=== PATIENT | female | born 1955 | race Caucasian/White ===

== ENCOUNTER → 2019-02-27 00:01 | Outpatient (BNVA) | payer MEDICARE, OTHER, SELFPAY | PROVIDERS: Family Provider Family Medicine; PCP Plastic Surgery; Visit Provider Podiatrist Foot & Ankle Surgery | DX: Z98.890 Other specified postprocedural states (principal); M24.675 Ankylosis, left foot; M85.872 Other specified disorders of bone density and structure, left ankle and foot | CPT/HCPCS: 73630 ==

== ENCOUNTER → 2019-03-20 16:23 | Outpatient (BNVA) | payer MEDICARE, OTHER, SELFPAY | PROVIDERS: Family Provider Family Medicine; PCP Plastic Surgery; Visit Provider Podiatrist Foot & Ankle Surgery | DX: Z98.890 Other specified postprocedural states (principal); Z48.89 Encounter for other specified surgical aftercare | CPT/HCPCS: 73630 ==

== ENCOUNTER → 2019-04-04 16:03 | Outpatient (BNVA) | payer MEDICARE, OTHER, SELFPAY | PROVIDERS: Family Provider Family Medicine; PCP Plastic Surgery; Visit Provider Urology | DX: N30.20 Other chronic cystitis without hematuria (principal); N39.41 Urge incontinence | CPT/HCPCS: 81001 ==

== ENCOUNTER → 2020-01-15 14:12 | Outpatient (BNVA) | payer MEDICARE, OTHER, SELFPAY | PROVIDERS: Family Provider Family Medicine; PCP Family Medicine; Visit Provider Nurse Practitioner Family | DX: N30.20 Other chronic cystitis without hematuria (principal); N39.41 Urge incontinence | CPT/HCPCS: 81003 ==

== ENCOUNTER → 2020-06-03 14:31 | Outpatient (BNVA) | payer MEDICARE, OTHER, SELFPAY | PROVIDERS: Family Provider Family Medicine; PCP Family Medicine; Referring Provider Family Medicine; Visit Provider Specialist | DX: M25.521 Pain in right elbow (principal) | CPT/HCPCS: 73080 ==

== ENCOUNTER → 2020-08-13 11:01 | Outpatient (BNVA) | payer MEDICARE, OTHER, SELFPAY | PROVIDERS: Family Provider Family Medicine; PCP Family Medicine; Visit Provider Urology | DX: N30.20 Other chronic cystitis without hematuria (principal); N39.41 Urge incontinence | CPT/HCPCS: 81003 ==

== ENCOUNTER → 2020-12-10 16:09 | Outpatient (BNVA) | payer MEDICARE, OTHER, SELFPAY | PROVIDERS: Family Provider Family Medicine; PCP Family Medicine; Visit Provider Nurse Practitioner Family | DX: N30.20 Other chronic cystitis without hematuria (principal); N39.41 Urge incontinence | CPT/HCPCS: 81003 ==

== ENCOUNTER → 2021-01-15 15:58 | Outpatient (BNVA) | payer MEDICARE, OTHER, SELFPAY | PROVIDERS: Family Provider Family Medicine; PCP Family Medicine; Visit Provider Nurse Practitioner Family | DX: N30.20 Other chronic cystitis without hematuria (principal); N39.41 Urge incontinence | CPT/HCPCS: 81003 ==

== ENCOUNTER 2021-01-16 14:23 | Outpatient (CLI) | payer MEDICARE, OTHER, SELFPAY ==
--- NOTE | 2021-01-16 14:29 | XR_ITS ---
WS: [id number] SCREENING DEXA SCAN Anevia CLINICAL INFORMATION: ASYMPTOMATIC MENOPAUSAL STATE COMPARISON: None. FINDINGS: The L1-L4 bone mineral density measures 0.961 g/cm2. This corresponds to a T score score of -1.8 and Z score of -0.4. Left femoral neck bone mineral density measures 0.619 g/cm2. This corresponds to a T score of -3.1 an d Z score of -1.9. Right femoral neck bone mineral density measures 0.677 g/cm2. This corresponds to a T score -2.6of an d Z score of -1.4. Mean femoral neck bone mineral density measures 0.648 g/cm2. This corresponds to a T score of -2.9 an d Z score of -1.7. XR/XR DEXA axial skeleton* [id number] IMPRESSION: Osteopenia lumbar spine. Osteoporosis femoral necks. Patient's FRAX calculated 10 year probability for major osteoporotic fracture i s 36.5 % and osteoporotic hip fracture is 16.0%.
== END 2021-01-16 14:24 | disposition home or self-care (01) ==
PROVIDERS: PCP Family Medicine; Visit Provider Family Medicine
DX: Z78.0 Asymptomatic menopausal state (principal); M85.88 Other specified disorders of bone density and structure, other site
CPT/HCPCS: 77080

== ENCOUNTER → 2021-05-14 14:41 | Outpatient (BNVA) | payer MEDICARE, OTHER, SELFPAY | PROVIDERS: Family Provider Family Medicine; PCP Family Medicine; Visit Provider Nurse Practitioner Family | DX: N30.20 Other chronic cystitis without hematuria (principal) | CPT/HCPCS: 81003 ==

== ENCOUNTER → 2022-02-24 14:16 | Outpatient (BNVA) | payer MEDICARE, OTHER, SELFPAY | PROVIDERS: Family Provider Family Medicine; PCP Family Medicine; Visit Provider Urology | DX: Z87.440 Personal history of urinary (tract) infections (principal); N39.41 Urge incontinence | CPT/HCPCS: 81003; 99213 ==

== ENCOUNTER → 2022-10-19 13:49 | Outpatient (BNVA) | payer MEDICARE, OTHER, SELFPAY | PROVIDERS: Family Provider Family Medicine; PCP Family Medicine; Visit Provider Dermatology | DX: L57.0 Actinic keratosis (principal); D22.5 Melanocytic nevi of trunk; L81.4 Other melanin hyperpigmentation; L57.8 Other skin changes due to chronic exposure to nonionizing radiation; L82.1 Other seborrheic keratosis | CPT/HCPCS: 17000; 17003; 99213 ==

== ENCOUNTER 2023-02-01 09:22 | Observation (INO) | payer MEDICARE, OTHER, SELFPAY ==
[2023-02-01] VITALS (24 sets, daily range): BP systolic 134–186; BP diastolic 65–93; PULSE 73–123; RESP 9–17; TEMP 36.4–36.9; O2SAT 93–99; BMI 20.7; BMI 20.6
--- NOTE | 2023-02-01 09:35 | CTR_ITS ---
PROCEDURE INFORMATION: Exam: CT Head Without Contrast Exam date and time: 02/01/2023 9:55 AM Age: 67 years old Clinical indication: Other: New onset seizures TECHNIQUE: Imaging protocol: Computed tomography of the head without contrast. Radiation optimization: All CT scans at this facility use at least one of these dose optimization techniques: automated exposure control; mA and/or kV adjustment per patient size (includes targeted exams where dose is matched to clinical indication); or iterative reconstruction. REPORTING DATA: Count of CT and Cardiac NM exams in prior 12 months: This patient has received 0 known CTs and 0 known cardiac nuclear medicine studies in the 12 months prior to the current study. COMPARISON: CT head wo con* [id number] 06/15/2016 10:06 AM RADIATION DOSE METRICS: Total DLP (mGy-cm): 1013.73 FINDINGS: Brain: There is no mass effect, midline shift, acute hemorrhage, extra-axial fluid collection or acute lobar infarct. There is chronic infarct involving the distribution of the right middle cerebral artery as well as chronic subinsular infarct on the left. There is associated wallerian degeneration on the right involving the cerebral peduncle. There is moderate patchy hemispheric white matter hypodensity likely representing chronic microvascular ischemic change. Cerebral ventricles: There is a trophic dilatation of the body and atrium of the right lateral ventricle. Paranasal sinuses: Visualized sinuses are unremarkable. No fluid levels. Mastoid air cells: Visualized mastoid air cells are well aerated. Orbital cavities: The patient is post bilateral cataract surgery. Bones/joints: Unremarkable. No acute fracture. Soft tissues: Unremarkable. CT/CT head wo con* [id number] IMPRESSION: No acute intracranial process.
--- NOTE | 2023-02-01 09:35 | W.ED.SEIZURE ---
HPI - Seizure General: Chief Complaint: Seizure Stated Complaint: seizures Time Seen by Provider: 02/01/23 09:24 Source: patient and family Mode of arrival: EMS History of Present Illness: HPI Narrative: 67-year-old female with history of CVA went to bed last around 10:00 last night was her usual baseline self. This morning she was difficult to arouse unresponsive EMS was called as they were loading the patient into the ambulance she had what appeared to be a seizure that lasted about 2 minutes she was given Ativan seizure stopped. She does have a history of seizure disorder after the stroke. She is had another seizure previously. She also has a baclofen pump that is due to have a battery replacement. No recent illness no fever. She had previously been on Keppra but that had been stopped. Room air O2 sat was 88% blood sugar 120s. MD complaint: possible seizure Review of Systems General: Reports: ROS unobtainable due to medical condition and ROS unobtainable due to mental status [facility] ED PFSH: Medical History (Updated 02/01/23 @ 15:48 by Mateo Singleton DO) Seizures Hallux malleus of left foot Hallux malleus of left foot Acquired equinus deformity of left foot Hypertension Urgency incontinence Chronic cystitis Surgical History H/O release of tendon History of hysterectomy Family History Mother , at age 68 Cancer Father , at age 74 Heart disease Sister Cancer Other Hypertension Social History Smoking and tobacco/nicotine status: never used tobacco/nicotine Alcohol intake: never Substance/Drug Use: never Marital status: Current occupational status: retired and disabled Physical Exam Const: COMMON NORMALS: no acute distress ORIENTATION/CONSCIOUSNESS: Yes patient obtunded OTHER: Nonresponsive except to painful stimuli grimaces HENMT: COMMON NORMALS: normocephalic, atraumatic and hearing grossly normal bilaterally HEAD & SCALP: normocephalic and atraumatic Resp: COMMON NORMALS: normal respiratory effort, No retractions, No use of accessory muscles and clear to auscultation bilaterally AUSCULTATION: clear to auscultation bilaterally Cardio: COMMON NORMALS: regular rate, regular rhythm and No murmurs present (Cardio) RATE: regular rate RHYTHM: regular rhythm GI: COMMON NORMALS: Soft to palpation and No hepatosplenomegaly present AUSCULTATION: Yes normoactive bowel sounds PALPATION: Yes Soft to palpation, No Tenderness to palpation present (GI), No Guarding due to palpation present (GI) and Yes No hepatosplenomegaly present Extremity: COMMON NORMALS: normal to inspection, capillary refill normal, no clubbing, cyanosis or edema, no calf tenderness and no pedal edema Skin: COMMON NORMALS: no rashes or lesions noted GENERAL SKIN EXAM: no rashes or lesions noted Course Vital Signs: Vital signs: Vital Signs Temperature 97.6 F 02/01/23 09:37 Pulse Rate 93 02/01/23 14:30 Respiratory Rate 12 02/01/23 14:30 Blood Pressure 147/80 02/01/23 14:30 Pulse Oximetry 99 02/01/23 14:30 Oxygen Delivery Me thod Nasal Cannula 02/01/23 13:05 Oxygen Flow Rate 2 02/01/23 13:05 MDM - Seizure MDM Narrative Medical decision making narrative: Extensive workup in the ER patient poorly responsive she did receive Ativan in the field she has a left-sided facial droop and left contractures of her upper extremity she also has a baclofen pump this is all result of her previous CVA she has been not noticing any new deficits. She has had seizures before however thought to be related to malfunctioning here with her baclofen pump that was adjusted and until now she has been seizure-free she also mildly hypoxic at times does not appear to clinically have pneumonia think the hypoxia was a result of the sedation from the Ativan we did do a chest x-ray and a CT head CTA head and neck all of which were negative a CTA chest was done to rule out PE as a cause of her hypoxia because she was also profoundly tachycardic in the emergency room. EKG did not show anything acute first troponin is 25-second troponin is pending Place patient on observation continue to monitor blood pressure control and further evaluate there is a question of groundglass opacities on the CTA of the chest clinically she not appear to have pneumonia or COVID discussed with the hospitalist. He will evaluate if he wants to check for COVID. Transaminases and alk phos are slightly elevated but her T. bili is normal gallbladder ultrasound was negative discussed with the family will admit orders written Differential Diagnosis Seizure Differential Diagnosis: Likely focal seizure and generalized seizure Medical Records Attestation: I reviewed the patient's medical records. Lab Data Attestation: I reviewed the patient's lab results. 02/01/23 09:48 02/01/23 09:48 Labs: Radiology Impressions Head CT 02/01/23 09:35 IMPRESSION: No acute intracranial process. Head/Neck CTA 02/01/23 10:46 IMPRESSION: Densely calcified intracranial right vertebral artery with moderate to severe stenosis. Otherwise no intracranial stenosis or large vessel occlusion. IMPRESSION: No hemodynamically significant stenosis. REFERENCES: NASCET CRITERIA. The degree of stenosis in the cervical segment of the internal carotid artery is based on NASCET criteria. Normal is no stenosis. Mild is less than 50% stenosis. Moderate is 50-69% stenosis. Severe is 70% to 99% stenosis. Total occlusion is no detectable patent lumen. Chest X-Ray 02/01/23 12:35 IMPRESSION: No acute findings. Gallbladder Ultrasound 02/01/23 12:35 IMPRESSION: No acute findings. Chest CTA 02/01/23 13:22 IMPRESSION: 1. No evidence for pulmonary arterial embolism. 2. Patchy bilateral ground-glass opacities. 3. 1.3 cm low-density lesion in the right lobe thyroid gland. Recommend thyroid ultrasound. 4. Limited visualization of upper abdomen shows ascites in the perihepatic region. Consider abdomen pelvis CT. Laboratory Results WBC 3.42 10^3/uL (3.29-11.43) 02/01/23 09:48 RBC 4.03 10^6/uL (3.85-5.65) 02/01/23 09:48 Hgb 12.40 g/dL (11.27-16.99) 02/01/23 09:48 Hct 37.5 % (36-47) 02/01/23 09:48 MCV 93.1 fl (85-98) 02/01/23 09:48 MCH 30.8 pg (27-33) 02/01/23 09:48 MCHC 33.1 g/dL (30-55) 02/01/23 09:48 RDW 13.5 % (12.1-15.1) 02/01/23 09:48 Plt Count 134 10^3/cmm (157-399) L 02/01/23 09:48 MPV 10.8 fL (7.4-10.4) H 02/01/23 09:48 Neut % (Auto) 65.5 % 02/01/23 09:48 Lymph % (Auto) 25.4 % 02/01/23 09:48 [place] % (Auto) 7.9 % 02/01/23 09:48 Eos % (Auto) 0.0 % 02/01/23 09:48 Baso % (Auto) 0.9 % 02/01/23 09:48 Neut # (Auto) 2.24 10^3/uL (1.8-7.7) 02/01/23 09:48 Lymph # (Auto) 0.9 10^3/uL (0.8-4.8) 02/01/23 09:48 [place] # (Auto) 0.3 10^3/uL (0.2-0.9) 02/01/23 09:48 Eos # (Auto) 0.0 10^3/uL (0.0-0.8) 02/01/23 09:48 Baso # (Auto) 0.0 10^3/uL (0.0-0.1) 02/01/23 09:48 Nucleated RBC % (auto) 0 % 02/01/23 09:48 Nucleated RBCs # 0.0 /100WBC 02/01/23 09:48 Sodium 145 mmol/L (136-145) 02/01/23 09:48 Potassium 3.4 mmol/L (3.5-5.1) L 02/01/23 09:48 Chloride 105 mmol/L (98-107) 02/01/23 09:48 Carbon Dioxide 34 mmol/L (22-29) H 02/01/23 09:48 Anion Gap 9.4 (5-19) 02/01/23 09:48 BUN 18 mg/dL (8-23) 02/01/23 09:48 Creatinine 0.5 mg/dL (0.5-0.9) 02/01/23 09:48 GFR Calculation 122.3 mL/min (90-130) 02/01/23 09:48 Glucose 106 mg/dL (65-115) 02/01/23 09:48 Calculated Osmolality 302 mOsm/kg (285-295) H 02/01/23 09:48 Lactic Acid 0.9 mmol/L (0.5-2.2) 02/01/23 10:13 Calcium 9.9 mg/dL (8.5-10.5) 02/01/23 09:48 Magnesium 1.7 mg/dL (1.7-2.3) 02/01/23 09:48 Total Bilirubin 0.3 mg/dL (0.15-1.2) 02/01/23 09:48 AST 47 U/L (0-32) H 02/01/23 09:48 ALT 46 U/L (0-33) H 02/01/23 09:48 Alkaline Phosphatase 192 U/L (35-105) H 02/01/23 09:48 Creatine Kinase 47 U/L (26-192) 02/01/23 09:48 Troponin T Baseline 25 ng/L (0-10) H 02/01/23 09:48 Total Protein 6.4 g/dL (6.6-8.7) L 02/01/23 09:48 Albumin 4.2 g/dL (3.5-5.2) 02/01/23 09:48 Globulin 2.2 g/dL (1.3-4.6) 02/01/23 09:48 Procalcitonin 0.09 ng/mL (0-0.5) 02/01/23 09:48 All radiology interpretation(s) finalized by discharge Discharge Plan Discharge Patient Disposition: Placed in Observation Clinical Impression: Generalized seizure, HTN (hypertension), History of CVA (cerebrovascular accident) Condition: Stable Prescriptions: No Action amlodipine 10 mg tablet 10 mg PO ONCE duloxetine [Cymbalta] 60 mg capsule,delayed release(DR/EC) 60 mg PO BID hydrochlorothiazide 50 mg tablet 50 mg PO QAM metformin 500 mg tablet 500 mg PO DAILY omeprazole 20 mg capsule,delayed release(DR/EC) 20 mg PO BID trazodone 50 mg tablet 50 mg PO DAILY PRN (Reason: Insomnia) potassium chloride 10 mEq tablet extended release 10 meq PO DAILY valsartan 80 mg PO DAILY fexofenadine 30 mg tablet 30 mg PO DAILY ipratropium bromide 21 mcg (0.03 %) spray,non-aerosol 2 spray intranasal BID Rx Instructions: administer into each nostril azelastine 205.5 mcg (0.15 %) spray,non-aerosol 1 spray intranasal BID Rx Instructions: administer into each nostril metoclopramide HCl 10 mg tablet 10 mg PO Q6H PRN (Reason: Nausea And Vomiting) nitrofurantoin monohyd/m-cryst 100 mg capsule 100 mg PO BID Qty: 60 4RF oxybutynin chloride 10 mg tablet extended release 24hr See Rx Instructions .ROUTE .COMPLEX Qty: 90 3RF Dose Instruction: TAKE 1 TABLET BY MOUTH EVERY DAY *TAKE SEVERAL HOURS APART FROM POTASSIUM* Rx Instructions: TAKE 1 TABLET BY MOUTH EVERY DAY *TAKE SEVERAL HOURS APART FROM POTASSIUM* ciprofloxacin HCl 500 mg tablet Referrals: Caitlyn Olsen MD [Primary Care Provider] - Coding Level of Care Code ED Equipment Tech for Ran Walters
[2023-02-01 10:03] LABS: Basophils % 0.9 %; Hematocrit 37.5 % (36-47); Lymphocytes # 0.9 10^3/uL (0.8-4.8); Lymphocytes % 25.4 %; Mean Corpuscular HGB Conc 33.1 g/dL (30-55); Mean Corpuscular Hemoglobin 30.8 pg (27-33); Mean Corpuscular Volume 93.1 fl (85-98); Mean Platelet Volume 10.8 fL (7.4-10.4); Monocytes # 0.3 10^3/uL (0.2-0.9); Monocytes % 7.9 %; Neutrophils # 2.24 10^3/uL (1.8-7.7); Neutrophils % 65.5 %; Nucleated Red Blood Cells % 0 %; Platelet Count 134 10^3/cmm (157-399); Red Blood Count 4.03 10^6/uL (3.85-5.65); Red Cell Distribution Width 13.5 % (12.1-15.1); White Blood Count 3.42 10^3/uL (3.29-11.43)
[2023-02-01 10:22] LABS: Alanine Aminotransferase 46 U/L (0-33); Albumin Level 4.2 g/dL (3.5-5.2); Alkaline Phosphatase 192 U/L (35-105); Anion Gap 9.4 (5-19); Aspartate Amino Transferase 47 U/L (0-32); Blood Urea Nitrogen 18 mg/dL (8-23); Calcium 9.9 mg/dL (8.5-10.5); Carbon Dioxide 34 mmol/L (22-29); Chloride 105 mmol/L (98-107); Creatine Phosphokinase 47 U/L (26-192); Globulin 2.2 g/dL (1.3-4.6); Glomerular Filtration Rate 122.3 mL/min (90-130); Glucose 106 mg/dL (65-115); Magnesium 1.7 mg/dL (1.7-2.3); Osmolality Calculated 302 mOsm/kg (285-295); Potassium 3.4 mmol/L (3.5-5.1); Sodium 145 mmol/L (136-145); Total Bilirubin 0.3 mg/dL (0.15-1.2); Total Protein 6.4 g/dL (6.6-8.7)
[2023-02-01 10:35] LABS: Lactic Sepsis W/Reflex 0.9 mmol/L (0.5-2.2)
--- NOTE | 2023-02-01 10:46 | CTR_ITS ---
PROCEDURE INFORMATION: Exam: CTA Head With Contrast, Arteriography Exam date and time: 02/01/2023 10:59 AM Age: 67 years old Clinical indication: Other: Unreponsive TECHNIQUE: Imaging protocol: Computed tomographic angiography of the head with contrast. Exam focused on the arteries. 3D rendering (Not supervised by radiologist): MIP and/or 3D reconstructed images were created by the technologist. Radiation optimization: All CT scans at this facility use at least one of these dose optimization techniques: automated exposure control; mA and/or kV adjustment per patient size (includes targeted exams where dose is matched to clinical indication); or iterative reconstruction. Contrast material: OMNI 350; Contrast volume: 97 ml; Contrast route: INTRAVENOUS (IV); REPORTING DATA: Count of CT and Cardiac NM exams in prior 12 months: This patient has received 0 known CTs and 0 known cardiac nuclear medicine studies in the 12 months prior to the current study. COMPARISON: CT head wo con* [id number] 02/01/2023 9:55 AM RADIATION DOSE METRICS: Total DLP (mGy-cm): 1013.73 FINDINGS: ANTERIOR CIRCULATION: Right internal carotid artery: Intracranial segment is patent with no significant stenosis. No aneurysm. Atherosclerotic calcification of the right carotid siphon. Right middle cerebral artery: No occlusion or significant stenosis. No aneurysm. Right anterior cerebral artery: No occlusion or significant stenosis. No aneurysm. Left internal carotid artery: Intracranial segment is patent with no significant stenosis. No aneurysm. Atherosclerotic calcification of the left carotid siphon. Left middle cerebral artery: No occlusion or significant stenosis. No aneurysm. Left anterior cerebral artery: No occlusion or significant stenosis. No aneurysm. POSTERIOR CIRCULATION: Right vertebral artery: Densely calcified intracranial right vertebral artery with moderate to severe stenosis. Otherwise no intracranial stenosis or large vessel occlusion. Left vertebral artery: Mild calcifications of the intracranial portion left vertebral artery with mild stenosis. Basilar artery: No occlusion or significant stenosis. No aneurysm. Right posterior cerebral artery: No occlusion or significant stenosis. No aneurysm. Left posterior cerebral artery: No occlusion or significant stenosis. No aneurysm. Brain: See Right vertebral artery finding. Cerebral ventricles: No ventriculomegaly. Bones/joints: Unremarkable. No acute fracture. Soft tissues: Unremarkable. PROCEDURE INFORMATION: Exam: CTA Neck With Contrast Exam date and time: 02/01/2023 10:59 AM Age: 67 years old Clinical indication: Other: Unreponsive TECHNIQUE: Imaging protocol: Computed tomographic angiography of the neck with contrast. Exam focused on the cervical segments of the vasculature. 3D rendering (Not supervised by radiologist): MIP and/or 3D reconstructed images were created by the technologist. Radiation optimization: All CT scans at this facility use at least one of these dose optimization techniques: automated exposure control; mA and/or kV adjustment per patient size (includes targeted exams where dose is matched to clinical indication); or iterative reconstruction. Contrast material: OMNI 350; Contrast volume: 97 ml; Contrast route: INTRAVENOUS (IV); REPORTING DATA: Count of CT and Cardiac NM exams in prior 12 months: This patient has received 0 known CTs and 0 known cardiac nuclear medicine studies in the 12 months prior to the current study. COMPARISON: CT head wo con* [id number] 02/01/2023 9:55 AM RADIATION DOSE METRICS: Total DLP (mGy-cm): 1013.73 FINDINGS: Tubes, catheters and devices: Epidural catheter terminates at T2. Right common carotid artery: No stenosis. No dissection or occlusion. Right internal carotid artery: No stenosis of the extracranial segment. No dissection or occlusion. Right external carotid artery: No occlusion or stenosis of the origin. Left common carotid artery: No stenosis. No dissection or occlusion. Left internal carotid artery: Circumferential calcifications and proximal left internal carotid artery with mild stenosis. Left external carotid artery: No occlusion or stenosis of the origin. Right vertebral artery: No stenosis. No dissection or occlusion. Left vertebral artery: No stenosis. No dissection or occlusion. Thyroid: Subcentimeter rounded low densities in the thyroid gland, not warranting further evaluation. Soft tissues: Normal. No significant soft tissue swelling. Bones/joints: Degenerative changes of the cervical spine. Slight anterolisthesis C3-C4 and C4-C5. Degenerative disc disease most prominently C5-C6 and C6-C7. Reversal of cervical lordosis. No definite spinal canal stenosis. CT/CT angio headneck* [id number] IMPRESSION: Densely calcified intracranial right vertebral artery with moderate to severe stenosis. Otherwise no intracranial stenosis or large vessel occlusion. IMPRESSION: No hemodynamically significant stenosis. REFERENCES: NASCET CRITERIA. The degree of stenosis in the cervical segment of the internal carotid artery is based on NASCET criteria. Normal is no stenosis. Mild is less than 50% stenosis. Moderate is 50-69% stenosis. Severe is 70% to 99% stenosis. Total occlusion is no detectable patent lumen.
[2023-02-01] MEDS: iohexol 350 mg/mL 500 mL Btl (per mL) IV ×2 (11:13→14:15)
[2023-02-01] MEDS: levETIRAcetam 1,000 MG/100 ML PREMIX 400 MG IV (11:23)
--- NOTE | 2023-02-01 12:35 | USR_ITS ---
PROCEDURE INFORMATION: Exam: US Abdomen, Limited; Right Upper Quadrant Exam date and time: 02/01/2023 12:46 PM Age: 67 years old Clinical indication: Abnormal findings; Abnormal lab test; Elevated liver enzymes; Additional info: Elevated lfts TECHNIQUE: Imaging protocol: Real time ultrasound of the abdomen with image documentation. Limited exam focused on the right upper quadrant. COMPARISON: US renal BI with PV bladder 11/25/2016 11:05 AM FINDINGS: Liver: Normal. No masses. Gallbladder: Normal. No gallstones. There is no gallbladder wall thickening. Biliary ducts: Normal. No stones. No dilation. Common bile duct measures 5 mm. Pancreas: Visualized pancreas is unremarkable. Right kidney: Normal. No mass. No hydronephrosis. Measures 7.8 cm. US/US gall bladder [id number] IMPRESSION: No acute findings.
--- NOTE | 2023-02-01 12:35 | XRR_ITS ---
PROCEDURE INFORMATION: Exam: XR Chest Exam date and time: 02/01/2023 12:57 PM Age: 67 years old Clinical indication: Cough; Additional info: Dyspnea/cough TECHNIQUE: Imaging protocol: Radiologic exam of the chest. Views: 1 view. COMPARISON: CR XR chest 1V [id number] 06/16/2016 8:23 AM FINDINGS: Lungs: Unremarkable. No consolidation. Pleural spaces: Unremarkable. No pleural effusion. No pneumothorax. Heart/Mediastinum: Unremarkable. No cardiomegaly. Bones/joints: Osteopenia. XR/XR chest 1V portable [id number] IMPRESSION: No acute findings.
--- NOTE | 2023-02-01 12:35 | ECG_ITS ---
[facility] Test Date: 2023-02-01 Pat Name: Laura Walsh Department: Room: Gender: Female Health Information Manager: : 1955 Requested By: Mateo Trotter Order Number: [id number] Juan MD: Abner Bates M.D. Measurements Intervals [place] Rate: 129 P: 96 LA: 158 QRS: 45 QRSD: 104 T: 32 QT: 328 QTc: 481 Interpretive Statements SINUS TACHYCARDIA Compared to ECG 06/15/2016 17:37:08 Sinus rhythm no longer present Electronically Signed On 02-01-2023 13:14:53 DIVORCE LAWYER by Abner Bates M.D. [email or web address] [email or web address] hospitalIndustrial Ceramic Solutionsohiohealth van [email or web address] [email or web address]/[id number]
[2023-02-01] MEDS: sodium chloride 0.9% 1,000 ML 999 ML IV (12:41)
[2023-02-01 13:12] LABS: Troponin(5th) Baseline 25 ng/L (0-10)
[2023-02-01 13:17] LABS: Procalcitonin 0.09 ng/mL (0-0.5)
--- NOTE | 2023-02-01 13:22 | CTR_ITS ---
PROCEDURE INFORMATION: Exam: CTA Chest With Contrast Exam date and time: 02/01/2023 2:10 PM Age: 67 years old Clinical indication: Hyperventilation; Additional info: Tachycardia/hypoxia TECHNIQUE: Imaging protocol: Computed tomographic angiography of the chest with contrast. Exam focused on the arteries. 3D rendering (Not supervised by radiologist): MIP and/or 3D reconstructed images were created by the technologist. Radiation optimization: All CT scans at this facility use at least one of these dose optimization techniques: automated exposure control; mA and/or kV adjustment per patient size (includes targeted exams where dose is matched to clinical indication); or iterative reconstruction. Contrast material: OMNI 350; Contrast volume: 62 ml; Contrast route: INTRAVENOUS (IV); REPORTING DATA: Count of CT and Cardiac NM exams in prior 12 months: This patient has received 0 known CTs and 0 known cardiac nuclear medicine studies in the 12 months prior to the current study. COMPARISON: CR (CHEST, ) 02/01/2023 12:57 PM RADIATION DOSE METRICS: Total DLP (mGy-cm): 187.2 FINDINGS: Tubes, catheters and devices: Epidural catheter noted in the thoracic region. Pulmonary arteries: No evidence for pulmonary arterial embolism. Aorta: Unremarkable. No aortic aneurysm. No aortic dissection. Thyroid: 1.3 cm low-density lesion in the right lobe thyroid gland. Recommend thyroid ultrasound. Lungs: Patchy bilateral ground-glass opacities. Pleural spaces: Unremarkable. No pneumothorax. No pleural effusion. Heart: Unremarkable. No cardiomegaly. No pericardial effusion. Lymph nodes: Unremarkable. No enlarged lymph nodes. Intraperitoneal space: Ascites in visualized upper abdominal regions. Bones/joints: Unremarkable. No acute fracture. Soft tissues: Unremarkable. CT/CT angio chest PE protcl [id number] IMPRESSION: 1. No evidence for pulmonary arterial embolism. 2. Patchy bilateral ground-glass opacities. 3. 1.3 cm low-density lesion in the right lobe thyroid gland. Recommend thyroid ultrasound. 4. Limited visualization of upper abdomen shows ascites in the perihepatic region. Consider abdomen pelvis CT.
[2023-02-01] MEDS: labetalol 5 mg/mL SDV 20mL 10 MG IVP ×2 (13:52→23:10)
--- NOTE | 2023-02-01 14:35 | ECG_ITS ---
[facility] Test Date: 2023-02-01 Pat Name: Laura Walsh Department: Room: Gender: Female Die Baker: : 1955 Requested By: Mateo Trotter Order Number: [id number] Juan MD: Abner Bates M.D. Measurements Intervals [place] Rate: 98 P: 60 NM: 198 QRS: 46 QRSD: 117 T: 52 QT: 384 QTc: 492 Interpretive Statements SINUS RHYTHM MODERATE INTRAVENTRICULAR CONDUCTION DELAY [110+ ms QRS DURATION] Compared to ECG 02/01/2023 13:13:09 Intraventricular conduction delay now present Sinus tachycardia no longer present Electronically Signed On 02-01-2023 23:01:22 OVERLOCK WAISTLINE JOINER by Abner Bates M.D. [id number]
--- NOTE | 2023-02-01 15:37 | PC.NURSE ---
UNABLE TO ADMINISTER PO AMLODIPINE AND HYDROCHLOROTHIAZIDE AT THIS TIME DUE TO PT LOC. ED PHYSICIAN MADE AWARE
[2023-02-01] MEDS: hyDRALAzine 20 mg/mL INJ 1 mL 10 MG IVP (16:46)
--- NOTE | 2023-02-01 16:49 | P.HP_ITS ---
Providers/Chief Complaint 2 Admitting Physician: Sorin Madrid MD Primary Care Provider: Caitlyn Olsen MD Chief Complaint: seizures History of Present Illness Laura Walsh is a 67 year old female with past medical history of stroke around 8 years ago after which she had left-sided deficits, seizure disorder poststroke not on any antiseizure medications currently. As per the son who was at bedside patient has had possibly for seizures since her stroke with last more than a year ago. She was never put on any antiseizure medications as she would be somnolent post medications. Today she was found by the family confused and sleepy earlier in the morning when they called the EMS with concerns for her being postictal. On arrival while being transferred to the ambulance patient was found to have seizures by the EMS and she received 2 mg of IV Ativan. Patient also received loading dose of Keppra after being into the ER. Patient has remained somnolent and sleepy since her presentation to the ER without much improvement in mentation hence hospitalist service was consulted for further evaluation and management. On examination, patient is sleepy and tired. As per the son patient is a slightly more awake than presentation and is able to respond to the family on and off. Patient was found to be hypotensive on presentation for which she received 10 mg of IV labetalol. Review of Systems 2 General: Reports: ROS unobtainable due to mental status Medications/Allergies Home Medications Medication Instructions Recorded Confirmed Last Taken Type amlodipine 10 mg tablet 10 mg PO ONCE 02/10/19 02/01/23 Unknown History duloxetine 60 mg capsule,delayed 60 mg PO BID 02/10/19 02/01/23 Unknown History release (Cymbalta) hydrochlorothiazide 50 mg tablet 50 mg PO QAM 02/10/19 02/01/23 Unknown History metformin 500 mg tablet 500 mg PO DAILY 02/10/19 02/01/23 Unknown History omeprazole 20 mg capsule,delayed 20 mg PO BID 02/10/19 02/01/23 Unknown History release valsartan 80 mg PO DAILY 02/16/19 02/01/23 Unknown History trazodone 50 mg tablet 50 mg PO DAILY PRN Insomnia 12/10/20 02/01/23 Unknown History fexofenadine 30 mg tablet 30 mg PO DAILY 01/15/21 02/01/23 Unknown History potassium chloride 10 mEq 10 meq PO DAILY 01/15/21 02/01/23 Unknown History tablet,extended release azelastine 205.5 mcg (0.15 %) 1 spray intranasal BID 05/14/21 02/01/23 Unknown History nasal spray ipratropium bromide 21 mcg (0.03 2 spray intranasal BID 05/14/21 02/01/23 Unknown History %) nasal spray metoclopramide HCl 10 mg tablet 10 mg PO Q6H PRN Nausea And 05/14/21 02/01/23 Unknown History Vomiting nitrofurantoin 100 mg PO BID #60 caps 02/03/22 02/01/23 Unknown Rx monohydrate/macrocrystals 100 mg capsule oxybutynin chloride 10 mg See Rx Instructions .Route 02/26/22 02/01/23 Unknown Rx tablet,extended release 24 hr .COMPLEX #90 tabs ciprofloxacin HCl 500 mg tablet mg 02/01/23 Unknown History Allergies Allergy/AdvReac Type Severity Reaction Status Date / Time No Known Allergies Allergy Verified 02/01/23 09:49 PFSH Acute 2 PFSH: Medical History (Updated 02/01/23 @ 22:19 by Sorin Madrid MD) Seizures Hallux malleus of left foot Hallux malleus of left foot Acquired equinus deformity of left foot Hypertension Urgency incontinence Chronic cystitis Surgical History H/O release of tendon History of hysterectomy Family History Mother , at age 68 Cancer Father , at age 74 Heart disease Sister Cancer Other Hypertension Social History Smoking and tobacco/nicotine status: never used tobacco/nicotine Alcohol intake: never Substance/Drug Use: never Marital status: Current occupational status: retired and disabled Vitals/I&O/Wt Last Vital Signs Temp 97.6 F 02/01/23 09:37 Pulse 104 H 02/01/23 16:34 Resp 12 02/01/23 16:34 BP 177/92 02/01/23 16:34 Pulse Ox 95 02/01/23 16:34 O2 Del Method Room Air 02/01/23 16:34 O2 Flow Rate 2 02/01/23 13:05 02/01/23 02/01/23 02/01/23 06:59 14:59 22:59 Intake Total 100 / 100 Balance 100 / 100 Weight last 48 hrs Weight 53.07 kg Physical Exam 2 Narrative: General: No acute distress, maintaining airway, somnolent HEENT: PERRLA, pupils bilaterally equal and reactive Chest: Normal vesicular breath sounds, no added sounds, equal good air entry bilaterally CVS: S1-S2 regular, no murmurs, no tachycardia, no gallops, no rubs Abdomen: Soft, nontender, no organomegaly, bowel sounds present Neuro: No focal deficits, no facial deformity, AO x3, power could not be assessed because of mentation, plantars bilateral downgoing Data 02/01/23 09:48 02/01/23 09:48 Other Labs: Radiology Impressions Head CT 02/01/23 09:35 IMPRESSION: No acute intracranial process. Head/Neck CTA 02/01/23 10:46 IMPRESSION: Densely calcified intracranial right vertebral artery with moderate to severe stenosis. Otherwise no intracranial stenosis or large vessel occlusion. IMPRESSION: No hemodynamically significant stenosis. REFERENCES: NASCET CRITERIA. The degree of stenosis in the cervical segment of the internal carotid artery is based on NASCET criteria. Normal is no stenosis. Mild is less than 50% stenosis. Moderate is 50-69% stenosis. Severe is 70% to 99% stenosis. Total occlusion is no detectable patent lumen. Chest X-Ray 02/01/23 12:35 IMPRESSION: No acute findings. Gallbladder Ultrasound 02/01/23 12:35 IMPRESSION: No acute findings. Chest CTA 02/01/23 13:22 IMPRESSION: 1. No evidence for pulmonary arterial embolism. 2. Patchy bilateral ground-glass opacities. 3. 1.3 cm low-density lesion in the right lobe thyroid gland. Recommend thyroid ultrasound. 4. Limited visualization of upper abdomen shows ascites in the perihepatic region. Consider abdomen pelvis CT. Laboratory Results WBC 3.42 10^3/uL (3.29-11.43) 02/01/23 09:48 RBC 4.03 10^6/uL (3.85-5.65) 02/01/23 09:48 Hgb 12.40 g/dL (11.27-16.99) 02/01/23 09:48 Hct 37.5 % (36-47) 02/01/23 09:48 MCV 93.1 fl (85-98) 02/01/23 09:48 MCH 30.8 pg (27-33) 02/01/23 09:48 MCHC 33.1 g/dL (30-55) 02/01/23 09:48 RDW 13.5 % (12.1-15.1) 02/01/23 09:48 Plt Count 134 10^3/cmm (157-399) L 02/01/23 09:48 MPV 10.8 fL (7.4-10.4) H 02/01/23 09:48 Neut % (Auto) 65.5 % 02/01/23 09:48 Lymph % (Auto) 25.4 % 02/01/23 09:48 [place] % (Auto) 7.9 % 02/01/23 09:48 Eos % (Auto) 0.0 % 02/01/23 09:48 Baso % (Auto) 0.9 % 02/01/23 09:48 Neut # (Auto) 2.24 10^3/uL (1.8-7.7) 02/01/23 09:48 Lymph # (Auto) 0.9 10^3/uL (0.8-4.8) 02/01/23 09:48 [place] # (Auto) 0.3 10^3/uL (0.2-0.9) 02/01/23 09:48 Eos # (Auto) 0.0 10^3/uL (0.0-0.8) 02/01/23 09:48 Baso # (Auto) 0.0 10^3/uL (0.0-0.1) 02/01/23 09:48 Nucleated RBC % (auto) 0 % 02/01/23 09:48 Nucleated RBCs # 0.0 /100WBC 02/01/23 09:48 Specimen Type Arterial 02/01/23 16:40 Sample Site Radial, left 02/01/23 16:40 ABG pH 7.49 (7.35-7.45) H 02/01/23 16:40 ABG pCO2 42.7 mmHg (35-45) 02/01/23 16:40 ABG pO2 85.2 mmHg (80.0-100.0) 02/01/23 16:40 ABG PO2/FiO2 Ratio 0 02/01/23 16:40 ABG HCO3 32.4 mmol/L (22-26) H 02/01/23 16:40 ABG O2 Saturation 98.2 02/01/23 16:40 ABG Base Excess 8.1 mmol/L (-2.0-2.0) H 02/01/23 16:40 Roderick Test Pos 02/01/23 16:40 A-a O2 Gradient 1.4 mmHg (5-10) L 02/01/23 16:40 Hematocrit 41.1 % (37-47) 02/01/23 16:40 Hgb O2 Saturation 96.7 % (95-100) 02/01/23 16:40 Carboxyhemoglobin 1.1 %THgb (0.4-20.1) 02/01/23 16:40 Methemoglobin 0.4 % (0.4-1.5) 02/01/23 16:40 Total Hemoglobin 13.4 g/dL (12-16) 02/01/23 16:40 Sodium 143.0 mmol/L (131-143) 02/01/23 16:40 Potassium 2.9 mmol/L (3.5-5.0) L 02/01/23 16:40 Glucose 114.0 mg/dL (70-115) 02/01/23 16:40 Ionized Calcium 1.1 mmol/L (1.1-1.4) 02/01/23 16:40 O2 Delivery Device Room air 02/01/23 16:40 FiO2 21.0 % 02/01/23 16:40 Other Spatial Scientist ID Cak 02/01/23 16:40 Sodium 145 mmol/L (136-145) 02/01/23 09:48 Potassium 3.4 mmol/L (3.5-5.1) L 02/01/23 09:48 Chloride 105 mmol/L (98-107) 02/01/23 09:48 Carbon Dioxide 34 mmol/L (22-29) H 02/01/23 09:48 Anion Gap 9.4 (5-19) 02/01/23 09:48 BUN 18 mg/dL (8-23) 02/01/23 09:48 Creatinine 0.5 mg/dL (0.5-0.9) 02/01/23 09:48 GFR Calculation 122.3 mL/min (90-130) 02/01/23 09:48 Glucose 106 mg/dL (65-115) 02/01/23 09:48 Calculated Osmolality 302 mOsm/kg (285-295) H 02/01/23 09:48 Lactic Acid 0.9 mmol/L (0.5-2.2) 02/01/23 10:13 Calcium 9.9 mg/dL (8.5-10.5) 02/01/23 09:48 Magnesium 1.7 mg/dL (1.7-2.3) 02/01/23 09:48 Total Bilirubin 0.3 mg/dL (0.15-1.2) 02/01/23 09:48 AST 47 U/L (0-32) H 02/01/23 09:48 ALT 46 U/L (0-33) H 02/01/23 09:48 Alkaline Phosphatase 192 U/L (35-105) H 02/01/23 09:48 Creatine Kinase 47 U/L (26-192) 02/01/23 09:48 Troponin T Baseline 25 ng/L (0-10) H 02/01/23 09:48 Total Protein 6.4 g/dL (6.6-8.7) L 02/01/23 09:48 Albumin 4.2 g/dL (3.5-5.2) 02/01/23 09:48 Globulin 2.2 g/dL (1.3-4.6) 02/01/23 09:48 Procalcitonin 0.09 ng/mL (0-0.5) 02/01/23 09:48 A&P Assessment and plan (1) Encephalopathy: Most likely in setting of postictal state from seizure along with antiseizure medication she received including 2 mg of IV Ativan and Keppra load. Appreciate CTA head and neck results. No concerns for new strokes. No concerns for infection as per family members. No leukocytosis or fever for now. No concerns for meningitis for now. Patient remains on room air. Cannot rule out indolent cystitis. Check UA. Check urine drug screen. Check prolactin. Can plan for respiratory viral panel. Blood sugar stable without any concerns of hypoglycemia. If patient's mentation does not improve in next 24 hours we will plan for MRI brain. Hold off on any antiseizure medications for now. Seizure precautions. The patient has further seizures we will plan for continuing Keppra and neurology consultation. Will advise patient to follow-up with her outpatient neurologist at the earliest if patient's mentation improved within next 24 hours. (2) History of CVA (cerebrovascular accident): (3) Seizures: Seizures precautions, aspiration precautions. N.p.o. for now. (4) Postictal state: (5) HTN (hypertension): Blood pressure is elevated. Goal blood pressure less than 140/90 mmHg. Patient also tachycardic. Cannot give oral medications for now given poor mentation. IV labetalol 10 mg one-time. IV hydralazine 10 mg every 6 hours as needed for systolic blood pressure of more than 160 mmHg. Plan CODE STATUS: Discussed in detail with patient's son at bedside. Son and will be DPOA. Full code. NPO. Protonix for PUD prophylaxis Heparin 5000 every 12 hourly for DVT prophylaxis. Attestations 2 Medical Necessity Statement*: Admission under observation for management of encephalopathy in setting of postictal status in a patient with known seizure disorder post stroke. Diagnoses Encephalopathy G93.40 History of CVA (cerebrovascular accident) Z86.73 Seizures R56.9 Postictal state R56.9 HTN (hypertension) I10
[2023-02-01 16:52] LABS: ABG PCO2 42.7 mmHg (35-45); ABG PH Result 7.49 (7.35-7.45); Alveolar-Arterial Oxygen Gradi 1.4 mmHg (5-10); Arterial Blood Gas Hematocrit 41.1 % (37-47); Base Excess ABG 8.1 mmol/L (-2.0-2.0); Blood Gas Allen Test Pos; Blood Gas Operator Identificat CAK; Blood Gas Sample Site Radial, left; Blood Gas Sample Type Arterial; Carboxyhemoglobin 1.1 %THgb (0.4-20.1); HCO3 ABG 32.4 mmol/L (22-26); HGB O2 Sat 96.7 % (95-100); Ionized Calcium Level - ABG 1.1 mmol/L (1.1-1.4); Methemoglobin 0.4 % (0.4-1.5); Oxygen Device ROOM AIR; Oxygen Saturation ABG 98.2; PO2 ABG 85.2 mmHg (80.0-100.0); PO2 FiO2 Ratio Arterial Blood 0; Potassium Level - ABG 2.9 mmol/L (3.5-5.0); Total Hemoglobin 13.4 g/dL (12-16)
[2023-02-01 17:14] LABS: Troponin 5 2HR 41.02 ng/L (0-10)
[2023-02-01 17:23] LABS: Troponin 5 2HR Delta 16.02 ABS# (0-10)
[2023-02-01 17:33] LABS: Iron 51 ug/dL (37-145); Percent Saturation 17.5 % (20-50); Total Iron Binding Capacity 290 mcg/dl; Unsaturated Iron Binding 239 ug/dL (112-347)
[2023-02-01 17:50] LABS: Procalcitonin 0.09 ng/mL (0-0.5); Vitamin B12 1073 pg/mL (232-1245)
[2023-02-01 17:53] LABS: Add Urine Microscopic? NO; Charge for UA Resulting for Rev
[2023-02-01 18:03] LABS: Amphetamines Screen Urine Negative (Negative); Barbiturates Screen Urine Negative (Negative); Benzodiazepines Screen Urine Positive (Negative); Cocaine Screen Urine Negative (Negative); Opiate Screen Urine Negative (Negative); PCP Screen Urine Negative (Negative); THC Screen Urine Negative (Negative)
[2023-02-01 18:10] LABS: Protein Urine Neg (Negative); Urine Appearance Clear (CLEAR); Urine Color Yellow (Yellow); pH Urine 8 (5-7)
[2023-02-01 18:11] LABS: Glucose Urine UA Norm (Normal)
[2023-02-01 18:12] LABS: Bilirubin Urine Neg (Negative); Blood Urine Neg (Negative); Ketones Urine Negative (Negative); Leukocyte Esterase Urine Negative (Negative); Nitrate Urine Negative (Negative); Sulfosalicylic Acid Urine Negative (Negative); Urobilinogen Urine Neg (Negative)
[2023-02-01 18:49] LABS: Thyroid Stimulating Hormone 7.93 uIU/mL (0.27-4.20)
[2023-02-01] MEDS: D5-NS 0.45% + KCL 20 mEq 20 MEQ/1,000 ML BAG 75 MEQ IV (20:11)
[2023-02-01] MEDS: enoxaparin 40 mg/0.4 mL Syringe SUBCUT (20:17)
[2023-02-01] MEDS: piperacillin-tazobactam 3.375 GM in sodium chloride 0.9% (plus) 50 ML IV (20:17)
[2023-02-01 20:23] LABS: Prolactin 13.17 ng/mL (4.8-23.3)
[2023-02-01 20:49] LABS: Free T4 Free Thyroxine 1.05 ng/dL (0.82-1.77); T3 Free 2.6 PG/ML (2.0-4.4)
[2023-02-01] MEDS: pantoprazole 40 mg SDV IVP (21:06)
[2023-02-01] MEDS: ondansetron 2 mg/ML SDV 2 mL 4 MG IVP (21:06)
[2023-02-01 21:50] LABS: Glucose Point of Care 116 mg/dL (70-110)
[2023-02-02 00:34] LABS: Glucose Point of Care 115 mg/dL (70-110)
[2023-02-02 02:45] LABS: Glucose Point of Care 115 mg/dL (70-110)
[2023-02-02 03:27] VITALS: BP 167/85; PULSE 100; RESP 18; TEMP 37.1; O2SAT 93
[2023-02-02] MEDS: piperacillin-tazobactam 3.375 GM in sodium chloride 0.9% (plus) 50 ML IV (03:37)
[2023-02-02] MEDS: hydroCHLOROthiazide 25 mg Tablet 50 MG PO (05:16)
[2023-02-02 05:45] LABS: Basophils # 0.1 10^3/uL (0.0-0.1); Basophils % 0.5 %; Eosinophils % 0.1 %; Hematocrit 38.8 % (36-47); Lymphocytes # 1.4 10^3/uL (0.8-4.8); Lymphocytes % 12.9 %; Mean Corpuscular Hemoglobin 30.9 pg (27-33); Mean Corpuscular Volume 90.9 fl (85-98); Mean Platelet Volume 10.3 fL (7.4-10.4); Monocytes # 0.8 10^3/uL (0.2-0.9); Neutrophils # 8.16 10^3/uL (1.8-7.7); Neutrophils % 78.1 %; Nucleated Red Blood Cells % 0 %; Platelet Count 145 10^3/cmm (157-399); Red Blood Count 4.27 10^6/uL (3.85-5.65); Red Cell Distribution Width 13.4 % (12.1-15.1); White Blood Count 10.44 10^3/uL (3.29-11.43)
[2023-02-02 06:00] VITALS: PULSE 93
[2023-02-02 06:08] LABS: Alanine Aminotransferase 40 U/L (0-33); Albumin Level 4.3 g/dL (3.5-5.2); Alkaline Phosphatase 157 U/L (35-105); Anion Gap 13.2 (5-19); Aspartate Amino Transferase 41 U/L (0-32); Blood Urea Nitrogen 10 mg/dL (8-23); Calcium 9.2 mg/dL (8.5-10.5); Carbon Dioxide 31 mmol/L (22-29); Chloride 97 mmol/L (98-107); Globulin 2.3 g/dL (1.3-4.6); Glomerular Filtration Rate 158.3 mL/min (90-130); Glucose 117 mg/dL (65-115); Magnesium 1.2 mg/dL (1.7-2.3); Osmolality Calculated 286 mOsm/kg (285-295); Phosphorus 2.3 mg/dL (2.5-4.5); Potassium 3.2 mmol/L (3.5-5.1); Sodium 138 mmol/L (136-145); Total Bilirubin 0.8 mg/dL (0.15-1.2); Total Protein 6.6 g/dL (6.6-8.7)
[2023-02-02 06:09] LABS: Chol HDL Ratio 2.21 mg/dL (0.0-4.40); Cholesterol 197 mg/dL (0-200); HDL Cholesterol 89 mg/dL (60-100); LDL Cholesterol Calculated 89 mg/dL (50-129); Triglycerides 94 mg/dL (0-150)
[2023-02-02 06:35] LABS: Estmated Average Glucose 82; Hemoglobin A1C 4.5 % (4.0-6.0)
[2023-02-02] MEDS: acetaminophen 325 mg Tablet 650 MG PO (07:18)
[2023-02-02 07:25] LABS: Folate Level > 20.0 ng/mL (4.8-37.3)
[2023-02-02 07:49] LABS: Glucose Point of Care 124 mg/dL (70-110)
[2023-02-02 08:00] VITALS: BP 187/95; PULSE 102; RESP 16; TEMP 37.1; O2SAT 94
--- NOTE | 2023-02-02 09:18 | PC.CHAP ---
Pastoral Care Encounter/Spiritual Assessment Type of Contact [] Declined client advisor visit [] Patient/Family/Request visit [] Outpatient visit [] Follow-up visit [] Physician referral [] Code/Alert [] Routine visit [] Staff referral [] Actively dying [] Patient sleeping [] Family support [] [] Out of room [] Palliative care [] [x] Receiving care in room [] Pre-surgical visit [] Trauma [] Long length of stay [] ICU visit [] Other: Relational/Emotional Strength [] Patient feels connected with others/family/visitors/staff [] Distress [] Loneliness/isolation [] Abandonment Spirituality of Patient [] Person of Karen [] Attends Orthodoxy of their Karen [] Believes in Prayer [] Reads Bible or Restoration materials [] There are Spiritual issues to be addressed Senior Geologist Interventions [] Prayer [] Active listening [] Non-anxious presence [] Spiritual/emotional support [] Crisis/trauma care [] Spiritual counseling [] Bereavement support [] Provided bereavement packet [] Provided Bible/devotional materials [] Provided toy/stuffed animal, coloring book to patient or family member [] Provided Communion [] Anointing/[place] [] Salvation [] Completed spiritual assessment [] Other: Impact on Illness or Injury [] Angry [] Fearful [] Anxious [] Often cries [] Exhaustion [] Unable to work [] Unable to attend church [] Unable to walk/stand [] Unable to read [] Unable to drive [] Unable to eat/drink [] Unable to sleep [] Unable to be with family [] Patient intubated [] Other: Summary Time spent with patient
[2023-02-02 09:46] VITALS: BP 187/95
[2023-02-02] MEDS: losartan 50 mg Tablet 80 MG PO (09:46)
[2023-02-02] MEDS: D5-NS 0.45% + KCL 20 mEq 20 MEQ/1,000 ML BAG 75 MEQ IV (09:56)
--- NOTE | 2023-02-02 11:11 | PM.DCS ---
Discharge Providers Date of Admission: 02/01/23 15:22 Date of Discharge: February 02, 2023 Attending Provider at Admission: Sorin Madrid MD Attending Provider at Discharge: Sorin Madrid MD Primary Care Provider: Caitlyn Olsen MD Diagnoses at Discharge Discharge Diagnosis (1) Encephalopathy: Status: Acute (2) History of CVA (cerebrovascular accident): Status: Acute (3) Seizures: Status: Acute (4) Postictal state: Status: Acute (5) HTN (hypertension): Status: Acute Reason for Visit Reason for Visit: seizures Hospital Course Hospital Course Laura Walsh is a 67 year old female with past medical history of stroke around 8 years ago after which she had left-sided deficits, seizure disorder poststroke not on any antiseizure medications currently. As per the son who was at bedside patient has had possibly for seizures since her stroke with last more than a year ago. She was never put on any antiseizure medications as she would be somnolent post medications. Today she was found by the family confused and sleepy earlier in the morning when they called the EMS with concerns for her being postictal. On arrival while being transferred to the ambulance patient was found to have seizures by the EMS and she received 2 mg of IV Ativan. Patient also received loading dose of Keppra after being into the ER. Patient has remained somnolent and sleepy since her presentation to the ER without much improvement in mentation hence hospitalist service was consulted for further evaluation and management. On examination, patient is sleepy and tired. As per the son patient is a slightly more awake than presentation and is able to respond to the family on and off. Patient was found to be hypotensive on presentation for which she received 10 mg of IV labetalol. Patient's mentation gradually improved while being on IV hydration. She did not have any further episodes of seizures. By the next day patient was more awake and alert to remain drowsy, sitting at edge of the bed and able to have complete conversations. Patient requested to be discharged. We did discuss that as patient is not back to her baseline completely she would be at risk of aspiration. As per family member she has had episodes like this in the past and they are used to taking care of her from before and are comfortable taking at home with current mentation. Patient during hospitalization did have high blood pressures for which her antihypertensives were adjusted. Her dose of hydrochlorothiazide has been decreased to 25 mg daily and Coreg 6.25 mg twice daily has been added to the medication list. She is to check her blood pressure daily at home and maintain a blood pressure diary and follow-up with a primary care provider within next 1 week for further adjustment of blood pressure medications. She is also advised to follow-up with her outpatient neurologist at the earliest for consideration of initiation of antiseizure medications. She is not to take duloxetine for next 24 hours. She is to maintain aspiration precautions at home and continue clear liquid diet for next 24 hours. Physical Exam Narrative: General: No acute distress, maintaining airway, AO x 3, drowsy, maintaining airway setting upon examination at the edge of the bed HEENT: PERRLA, pupils bilaterally equal and reactive Chest: Normal vesicular breath sounds, no added sounds, equal good air entry bilaterally CVS: S1-S2 regular, no murmurs, no tachycardia, no gallops, no rubs Abdomen: Soft, nontender, no organomegaly, bowel sounds present Neuro: No focal deficits, no facial deformity, AO x3, power could not be assessed because of mentation, plantars bilateral downgoing Urinary Catheter Management: Hess: Cath Placed During This Visit: yes Reason for Continuing Indwelling Catheter: Other Urinary Catheter Date of Insertion: 02/01/23 Urinary Catheter Time of Insertion: 17:40 Discharge Data Studies Completed and Pending Completed Studies During Hospitalization Category Date Time Status CT angio chest PE protcl [id number] Stat Cat Scan 02/01/23 13:[address] head wo con* [id number] Stat Cat Scan 02/01/23 09:35 Completed CTA head neck [CT angio headneck* [id number]] Stat Cat Scan 02/01/23 10:46 Completed XR chest 1V portable [id number] Stat Exams 02/01/23 12:35 Completed US gall bladder [id number] Stat Ultrasound 02/01/23 12:35 Completed Pending at discharge Category Date Time Status Blood Cultures ([facility]) Routine Lab 02/01/23 19:10 Received Blood Cultures ([facility]) Routine Lab 02/01/23 19:15 Received MRSA [Methicillin Resistant S.aureu] Routine Lab 02/01/23 16:46 Ordered Radiology Impressions Head CT 02/01/23 09:35 IMPRESSION: No acute intracranial process. Head/Neck CTA 02/01/23 10:46 IMPRESSION: Densely calcified intracranial right vertebral artery with moderate to severe stenosis. Otherwise no intracranial stenosis or large vessel occlusion. IMPRESSION: No hemodynamically significant stenosis. REFERENCES: NASCET CRITERIA. The degree of stenosis in the cervical segment of the internal carotid artery is based on NASCET criteria. Normal is no stenosis. Mild is less than 50% stenosis. Moderate is 50-69% stenosis. Severe is 70% to 99% stenosis. Total occlusion is no detectable patent lumen. Chest X-Ray 02/01/23 12:35 IMPRESSION: No acute findings. Gallbladder Ultrasound 02/01/23 12:35 IMPRESSION: No acute findings. Chest CTA 02/01/23 13:22 IMPRESSION: 1. No evidence for pulmonary arterial embolism. 2. Patchy bilateral ground-glass opacities. 3. 1.3 cm low-density lesion in the right lobe thyroid gland. Recommend thyroid ultrasound. 4. Limited visualization of upper abdomen shows ascites in the perihepatic region. Consider abdomen pelvis CT. Laboratory Results WBC 10.44 10^3/uL (3.29-11.43) 02/02/23 05:32 RBC 4.27 10^6/uL (3.85-5.65) 02/02/23 05:32 Hgb 13.20 g/dL (11.27-16.99) 02/02/23 05:32 Hct 38.8 % (36-47) 02/02/23 05:32 MCV 90.9 fl (85-98) 02/02/23 05:32 MCH 30.9 pg (27-33) 02/02/23 05:32 MCHC 34.0 g/dL (30-55) 02/02/23 05:32 RDW 13.4 % (12.1-15.1) 02/02/23 05:32 Plt Count 145 10^3/cmm (157-399) L 02/02/23 05:32 MPV 10.3 fL (7.4-10.4) 02/02/23 05:32 Neut % (Auto) 78.1 % 02/02/23 05:32 Lymph % (Auto) 12.9 % 02/02/23 05:32 [place] % (Auto) 8.0 % 02/02/23 05:32 Eos % (Auto) 0.1 % 02/02/23 05:32 Baso % (Auto) 0.5 % 02/02/23 05:32 Neut # (Auto) 8.16 10^3/uL (1.8-7.7) H 02/02/23 05:32 Lymph # (Auto) 1.4 10^3/uL (0.8-4.8) 02/02/23 05:32 [place] # (Auto) 0.8 10^3/uL (0.2-0.9) 02/02/23 05:32 Eos # (Auto) 0.0 10^3/uL (0.0-0.8) 02/02/23 05:32 Baso # (Auto) 0.1 10^3/uL (0.0-0.1) 02/02/23 05:32 Nucleated RBC % (auto) 0 % 02/02/23 05:32 Nucleated RBCs # 0.0 /100WBC 02/02/23 05:32 Specimen Type Arterial 02/01/23 16:40 Sample Site Radial, left 02/01/23 16:40 ABG pH 7.49 (7.35-7.45) H 02/01/23 16:40 ABG pCO2 42.7 mmHg (35-45) 02/01/23 16:40 ABG pO2 85.2 mmHg (80.0-100.0) 02/01/23 16:40 ABG PO2/FiO2 Ratio 0 02/01/23 16:40 ABG HCO3 32.4 mmol/L (22-26) H 02/01/23 16:40 ABG O2 Saturation 98.2 02/01/23 16:40 ABG Base Excess 8.1 mmol/L (-2.0-2.0) H 02/01/23 16:40 Roderick Test Pos 02/01/23 16:40 A-a O2 Gradient 1.4 mmHg (5-10) L 02/01/23 16:40 Hematocrit 41.1 % (37-47) 02/01/23 16:40 Hgb O2 Saturation 96.7 % (95-100) 02/01/23 16:40 Carboxyhemoglobin 1.1 %THgb (0.4-20.1) 02/01/23 16:40 Methemoglobin 0.4 % (0.4-1.5) 02/01/23 16:40 Total Hemoglobin 13.4 g/dL (12-16) 02/01/23 16:40 Sodium 143.0 mmol/L (131-143) 02/01/23 16:40 Potassium 2.9 mmol/L (3.5-5.0) L 02/01/23 16:40 Glucose 114.0 mg/dL (70-115) 02/01/23 16:40 Ionized Calcium 1.1 mmol/L (1.1-1.4) 02/01/23 16:40 O2 Delivery Device Room air 02/01/23 16:40 FiO2 21.0 % 02/01/23 16:40 [employer] Umpire ID Cak 02/01/23 16:40 Sodium 138 mmol/L (136-145) 02/02/23 05:32 Potassium 3.2 mmol/L (3.5-5.1) L 02/02/23 05:32 Chloride 97 mmol/L (98-107) L 02/02/23 05:32 Carbon Dioxide 31 mmol/L (22-29) H 02/02/23 05:32 Anion Gap 13.2 (5-19) 02/02/23 05:32 BUN 10 mg/dL (8-23) 02/02/23 05:32 Creatinine 0.4 mg/dL (0.5-0.9) L 02/02/23 05:32 GFR Calculation 158.3 mL/min (90-130) H 02/02/23 05:32 Glucose 117 mg/dL (65-115) H 02/02/23 05:32 POC Glucose 124 mg/dL (70-110) H 02/02/23 07:46 Estimat Average Glucose 82 02/02/23 05:32 Hemoglobin A1c 4.5 % (4.0-6.0) 02/02/23 05:32 Calculated Osmolality 286 mOsm/kg (285-295) 02/02/23 05:32 Lactic Acid 0.9 mmol/L (0.5-2.2) 02/01/23 10:13 Calcium 9.2 mg/dL (8.5-10.5) 02/02/23 05:32 Phosphorus 2.3 mg/dL (2.5-4.5) L 02/02/23 05:32 Magnesium 1.2 mg/dL (1.7-2.3) L 02/02/23 05:32 Iron 51 ug/dL (37-145) 02/01/23 09:48 TIBC 290 mcg/dl 02/01/23 09:48 % Saturation 17.5 % (20-50) L 02/01/23 09:48 Unsat Iron Binding 239 ug/dL (112-347) 02/01/23 09:48 Total Bilirubin 0.8 mg/dL (0.15-1.2) 02/02/23 05:32 AST 41 U/L (0-32) H 02/02/23 05:32 ALT 40 U/L (0-33) H 02/02/23 05:32 Alkaline Phosphatase 157 U/L (35-105) H 02/02/23 05:32 Creatine Kinase 47 U/L (26-192) 02/01/23 09:48 Troponin T Baseline 25 ng/L (0-10) H 02/01/23 09:48 Troponin T 120 Minute 41.02 ng/L (0-10) H 02/01/23 16:23 Delta Troponin T 16.02 ABS# (0-10) H* 02/01/23 16:23 Total Protein 6.6 g/dL (6.6-8.7) 02/02/23 05:32 Albumin 4.3 g/dL (3.5-5.2) 02/02/23 05:32 Globulin 2.3 g/dL (1.3-4.6) 02/02/23 05:32 Triglycerides 94 mg/dL (0-150) 02/02/23 05:32 Cholesterol 197 mg/dL (0-200) 02/02/23 05:32 LDL Cholesterol, Calc 89 mg/dL (50-129) 02/02/23 05:32 HDL Cholesterol 89 mg/dL (60-100) 02/02/23 05:32 LDL/HDL Ratio 1.00 RATIO (0.00-3.22) 02/02/23 05:32 Cholesterol/HDL Ratio 2.21 mg/dL (0.0-4.40) 02/02/23 05:32 Vitamin B12 1073 pg/mL (232-1245) 02/01/23 09:48 Folate > 20.0 ng/mL (4.8-37.3) 02/02/23 05:32 Procalcitonin 0.09 ng/mL (0-0.5) 02/01/23 09:48 Procalcitonin 0.09 ng/mL (0-0.5) 02/01/23 09:48 TSH 7.93 uIU/mL (0.27-4.20) H 02/01/23 09:48 Free T4 1.05 ng/dL (0.82-1.77) 02/01/23 16:23 Free T3 2.6 PG/ML (2.0-4.4) 02/01/23 16:23 Prolactin 13.17 ng/mL (4.8-23.3) 02/01/23 16:23 Urine Color Yellow (Yellow) 02/01/23 17:45 Urine Appearance Clear (CLEAR) 02/01/23 17:45 Urine pH 8 (5-7) H 02/01/23 17:45 Ur Specific [place] 1.010 (1.005-1.030) 02/01/23 17:45 Urine Protein Neg (Negative) 02/01/23 17:45 Urine Glucose (UA) Norm (Normal) 02/01/23 17:45 Urine Ketones Negative (Negative) 02/01/23 17:45 Urine Blood Neg (Negative) 02/01/23 17:45 Urine Nitrate Negative (Negative) 02/01/23 17:45 Urine Bilirubin Neg (Negative) 02/01/23 17:45 Prot Sulfosalicylic Acd Negative (Negative) 02/01/23 17:45 Urine Urobilinogen Neg mg/dL (Negative) 02/01/23 17:45 Ur Leukocyte Esterase Negative (Negative) 02/01/23 17:45 Urine Opiates Screen Negative ng/mL (Negative) 02/01/23 17:45 Ur Barbiturates Screen Negative ng/mL (Negative) 02/01/23 17:45 Ur Phencyclidine Scrn Negative ng/mL (Negative) 02/01/23 17:45 Ur Amphetamines Screen Negative ng/mL (Negative) 02/01/23 17:45 U Benzodiazepines Scrn Positive ng/mL (Negative) H 02/01/23 17:45 Urine Cocaine Screen Negative ng/mL (Negative) 02/01/23 17:45 U Marijuana (THC) Screen Negative ng/mL (Negative) 02/01/23 17:45 Vitals Last Vital Signs Temp 98.7 F 02/02/23 08:00 Pulse 102 H 02/02/23 08:00 Resp 16 02/02/23 08:00 BP 187/95 02/02/23 09:46 Pulse Ox 94 02/02/23 08:00 O2 Del Method Room Air 02/02/23 08:00 O2 Flow Rate 2 02/01/23 13:05 Discharge Plan Discharge Patient Disposition: Home Condition: Stable Prescriptions: New carvedilol 12.5 mg Tablet 6.25 mg PO BID 30 Days Qty: 30 0RF Continued amlodipine 10 mg tablet 10 mg PO ONCE duloxetine [Cymbalta] 60 mg capsule,delayed release(DR/EC) 60 mg PO BID metformin 500 mg tablet 500 mg PO DAILY omeprazole 20 mg capsule,delayed release(DR/EC) 20 mg PO BID trazodone 50 mg tablet 50 mg PO DAILY PRN (Reason: Insomnia) potassium chloride 10 mEq tablet extended release 10 meq PO DAILY valsartan 80 mg PO DAILY fexofenadine 30 mg tablet 30 mg PO DAILY ipratropium bromide 21 mcg (0.03 %) spray,non-aerosol 2 spray intranasal BID Rx Instructions: administer into each nostril azelastine 205.5 mcg (0.15 %) spray,non-aerosol 1 spray intranasal BID Rx Instructions: administer into each nostril metoclopramide HCl 10 mg tablet 10 mg PO Q6H PRN (Reason: Nausea And Vomiting) oxybutynin chloride 10 mg tablet extended release 24hr See Rx Instructions .ROUTE .COMPLEX Qty: 90 3RF Dose Instruction: TAKE 1 TABLET BY MOUTH EVERY DAY *TAKE SEVERAL HOURS APART FROM POTASSIUM* Rx Instructions: TAKE 1 TABLET BY MOUTH EVERY DAY *TAKE SEVERAL HOURS APART FROM POTASSIUM* Changed hydrochlorothiazide 50 mg tablet 25 mg PO QAM 15 Days Qty: 15 0RF Discontinued nitrofurantoin monohyd/m-cryst 100 mg capsule 100 mg PO BID Qty: 60 4RF ciprofloxacin HCl 500 mg tablet 500 mg PO BID Discharge Orders: Discharge Order (Routine); Ordered 02/02/23 Ordered By: Sorin Madrid Referrals: Caitlyn Olsen MD [Primary Care Provider] - 02/05/23 9:00 am Discharge Diet: Advance as tolerated Discharge Activity: Resume usual activity and Increase activity as tolerated Patient Instructions: Carvedilol (By mouth) (Coreg, Coreg CR, Hypertenevide-12.5), Hypertension, Epilepsy (DC), Encephalopathy (DC), Opioid Safety Activity Restrictions/Additional Instructions: Please avoid fluoroquinolones as they can reduce the seizure threshold. Dose of hydrochlorothiazide has been decreased to 25 mg daily. Coreg 6.25 mg twice daily has been added to your medication list. Hold Cymbalta for next 24 hours. Please check your blood pressure daily at home maintain a blood pressure diary. Follow-up with a primary care provider within next 1 week for further adjustment of antihypertensive. Please maintain aspiration precautions are discussed in detail. Continue liquid diet for next 24 hours and then advance to regular diet gradually within next 2 to 3 days once patient's mentation improved. Please follow-up with your outpatient neurologist at the earliest as discussed. Discharge Attestations Time Spent in Discharge Care*: greater than 30 min Specific Discharge Activities: educating patient, educating and/or supporting family/caregiver, discussing with pcp/other providers, discussing with case loader operator/social workers/dc planners, documenting/other paperwork and evaluating patient/reviewing data Status at Discharge: Cognitive status at discharge: mildly impaired cognition, Behavioral status at discharge: cooperative, Functional status at discharge: other assisted ambulation, Overall status at discharge: patient is progressing back to baseline Quality Metrics Clinical Quality Measures [ No reported AMI, CVA or VTE this stay] Coding Level of Care Code Acute Code for Chg Fwd Diagnoses Encephalopathy G93.40 History of CVA (cerebrovascular accident) Z86.73 Seizures R56.9 Postictal state R56.9 HTN (hypertension) I10
[2023-02-02] MEDS: carvedilol 12.5 mg Tablet 6.25 MG PO (11:54)
[2023-02-02] MEDS: amlodipine 10 mg Tablet PO (11:55)
[2023-02-02 11:59] VITALS: BP 169/84; PULSE 86; RESP 16; TEMP 36.7; O2SAT 96
[2023-02-02 12:41] VITALS: BP 169/84; PULSE 86; RESP 16; TEMP 36.7; O2SAT 96
== END 2023-02-02 12:35 | disposition home or self-care (01) ==
LOC: ER 15:48 → MEDSURG 16:05
PROVIDERS: Absent Provider Psychiatry & Neurology Neurology; Admitting Provider Student in an Organized Health Care Education/Training Program; Emergency Provider Family Medicine; PCP Family Medicine; Visit Provider Student in an Organized Health Care Education/Training Program
DX: G93.40 Encephalopathy, unspecified (principal); Z86.73 Personal history of transient ischemic attack (TIA), and cerebral infarction without residual deficits; R56.9 Unspecified convulsions; I10 Essential (primary) hypertension
CPT/HCPCS: 36415; 36416; 36600; 51702; 70450; 70496; 70498; 71045; 71275; 76705; 80051; 80053; 80061; 80306; 81003; 82330; 82550; 82607; 82746; 82805; 82962; 83036; 83540; 83550; 83605; 83735; 84100; 84145; 84146; 84439; 84443; 84481; 84484; 85025; 87040; 93005; 96365; 96366; 96367; 96372; 96375; 96376; 99285; C9113; G0378; J0360; J1650; J1953; J2405; J2543; J3490; J7030; Q9967

== ENCOUNTER 2023-12-03 15:10 | Outpatient (CLI) | payer MEDICARE, OTHER, SELFPAY ==
--- NOTE | 2023-12-03 15:12 | XR_ITS ---
WS: [id number] SCREENING DEXA SCAN [place] CLINICAL INFORMATION: POSTMENOPAUSAL COMPARISON: 2020 FINDINGS: The L1-L4 bone mineral density measures 0.881 g/cm2. This corresponds to a T score score of -2.5 and Z score of -0.3. Left femoral neck bone mineral density measures 0.595 g/cm2. This corresponds to a T score of -3.3 an d Z score of -1.4. Right femoral neck bone mineral density measures 0.612 g/cm2. This corresponds to a T score -3.1of an d Z score of -1.3. Mean femoral neck bone mineral density measures 0.603 g/cm2. This corresponds to a T score of -3.2 an d Z score of -1.4. XR/XR DEXA axial skeleton* [id number] IMPRESSION: Osteoporosis lumbar spine at the lower end of the range Osteoporosis femoral necks. Patient's FRAX calculated 10 year probability for major osteoporotic fracture i s 27.9% and osteoporotic hip fracture is 10.9%. Bone mineral density lumbar spine decreased -8.3% Bone mineral density femoral necks decreased -6.9%
== END 2023-12-03 15:11 | disposition home or self-care (01) ==
LOC: RAD 15:11
PROVIDERS: PCP Family Medicine; Visit Provider Family Medicine
DX: Z13.820 Encounter for screening for osteoporosis (principal); Z78.0 Asymptomatic menopausal state; M81.0 Age-related osteoporosis without current pathological fracture
CPT/HCPCS: 77080

== ENCOUNTER → 2024-01-10 13:30 | Outpatient (BNVA) | payer MEDICARE, OTHER, SELFPAY | PROVIDERS: PCP Family Medicine; Visit Provider Nurse Practitioner Family | DX: D18.01 Hemangioma of skin and subcutaneous tissue (principal); L81.4 Other melanin hyperpigmentation; L82.1 Other seborrheic keratosis; D48.5 Neoplasm of uncertain behavior of skin; L57.0 Actinic keratosis | CPT/HCPCS: 11102; 17000; 99213 ==

== ENCOUNTER → 2024-04-05 09:05 | Outpatient (BNVA) | payer MEDICARE, OTHER, SELFPAY | PROVIDERS: PCP Family Medicine; Visit Provider Nurse Practitioner Family | DX: D18.01 Hemangioma of skin and subcutaneous tissue (principal); L81.4 Other melanin hyperpigmentation; Z08 Encounter for follow-up examination after completed treatment for malignant neoplasm; Z85.828 Personal history of other malignant neoplasm of skin; L57.0 Actinic keratosis | CPT/HCPCS: 17000; 99213 ==

== ENCOUNTER → 2024-06-06 14:11 | Outpatient (BNVA) | payer MEDICARE, OTHER, SELFPAY | PROVIDERS: PCP Family Medicine; Visit Provider Podiatrist Foot & Ankle Surgery | DX: M79.672 Pain in left foot (principal); M79.671 Pain in right foot; M20.42 Other hammer toe(s) (acquired), left foot; Z86.73 Personal history of transient ischemic attack (TIA), and cerebral infarction without residual deficits; G93.40 Encephalopathy, unspecified; M21.372 Foot drop, left foot | CPT/HCPCS: 73630; 99204 ==